=== PATIENT | female | born 1980 | race Caucasian/White ===

== ENCOUNTER 2018-01-23 16:46 | Emergency (ER) | payer MEDICAID, OTHER ==
[~2018-01-23] VITALS: Ht 157.5 cm; Wt 64.0 kg
[~2018-01-23 16:46] MED LIST: ALBU-136 IH
[2018-01-23 17:01] VITALS: BP 124/91
--- NOTE | 2018-01-23 17:08 | NUR ---
AMBULATES TO BED 2
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
[2018-01-23] MEDS ORDERED: HYDROcodone/APAP 5/325 MG 1 TAB TAB PO ONE (17:50)
--- NOTE | 2018-01-23 19:14 | NUR ---
RECIEVED REPORT FROM AM SHIFT, PT LAYING IN BED, AA&OX4, C/O PAIN STILL AFTER MEDICATED, WILL CONTINUE TO MONITOR.
[2018-01-23 19:25] VITALS: BP 118/78
== END 2018-01-23 19:25 | disposition home or self-care (01) ==
LOC: MED 16:46
DX: S16.1XXA Strain of muscle, fascia and tendon at neck level, initial encounter (principal); S20.219A Contusion of unspecified front wall of thorax, initial encounter; J45.909 Unspecified asthma, uncomplicated; V49.49XA Driver injured in collision with other motor vehicles in traffic accident, initial encounter; Y93.89 Activity, other specified; Y99.8 Other external cause status; Y92.411 Interstate highway as the place of occurrence of the external cause
CPT/HCPCS: 71046; 81025; 99284